=== PATIENT | female | born 1965 | race Caucasian/White ===

== ENCOUNTER 2017-04-03 04:54 | Emergency (ER) | END 2017-04-03 06:43 | disposition home or self-care (01) | DX: K80.50 Calculus of bile duct without cholangitis or cholecystitis without obstruction (principal); E11.9 Type 2 diabetes mellitus without complications; I10 Essential (primary) hypertension; J45.909 Unspecified asthma, uncomplicated; Z79.82 Long term (current) use of aspirin | CPT/HCPCS: 36415; 76705; 80053; 81003; 83690; 85025; J2270; J2405; Z7502 ==